=== PATIENT | female | born 1960 | race Caucasian/White ===

== ENCOUNTER → 2017-07-24 | Outpatient (CLI) | payer MEDICAID | END | disposition home or self-care (01) | LOC: US 13:14 | PROC: B54NZZZ Ultrasonography of Left Upper Extremity Veins (ICD-10-PCS; principal; 2017-07-24) | DX: M79.89 Other specified soft tissue disorders (principal) | CPT/HCPCS: Q0092 ==

== ENCOUNTER → 2017-08-07 | Outpatient (CLI) | payer MEDICAID | END | disposition home or self-care (01) | LOC: CT 13:33 | PROC: BP2 Imaging, Non-Axial Upper Bones, Computerized Tomography (CT Scan) (ICD-10-PCS; principal; 2017-08-07) | DX: M79.89 Other specified soft tissue disorders (principal) | CPT/HCPCS: Q9967 ==

== ENCOUNTER → 2018-01-14 | Outpatient (CLI) | payer MEDICAID ==
[2018-01-14 12:30] LABS: ALBUMIN 3.6 g/dL (3.4-5.0); ALKALINE PHOSPHATASE 76 U/L (46-116); ALT/SGPT 28 U/L (14-59); AST/SGOT 28 U/L (15-37); BILIRUBIN TOTAL 0.25 mg/dL (0.20-1.00); CALCIUM 9.2 mg/dL (8.5-10.1); CARBON DIOXIDE 26.2 mmol/L (21-32); CHLORIDE SERUM 102 mmol/L (98-107); CHOLESTEROL 187 mg/dL (<200); CHOLESTEROL/HDL RATIO 3.3; CREATININE SERUM 0.7 mg/dL (0.6-1.0); GFR1 > 60 mL/min; GLUCOSE SERUM 136 mg/dL (74-106); HDL CHOLESTEROL 56 mg/dL (40-60); POTASSIUM SERUM 4.2 mmol/L (3.5-5.1); SODIUM SERUM 138 mmol/L (136-145); TOTAL PROTEIN, SERUM 7.9 g/dL (6.4-8.2); TRIGLYCERIDES 97 mg/dL (<150)
[2018-01-14 12:37] LABS: T3 TOTAL 1.53 ng/mL
[2018-01-14 12:39] LABS: BASOPHIL % 0.4 % (0-2); FREE T4 1.09 ng/dL (0.76-1.46); PLATELET COUNT 319 x10^3mcL (130-400); RED CELL DISTRIBUTION WIDTH 14.4 % (11.5-14.5); T4(THYROXINE) 10.4 ug/dL (4.7-13.3)
== END | disposition home or self-care (01) ==
LOC: LB 11:32
DX: E11.9 Type 2 diabetes mellitus without complications (principal)
CPT/HCPCS: 84439

== ENCOUNTER → 2018-05-28 | Outpatient (CLI) | payer MEDICAID | END | disposition home or self-care (01) | LOC: US 09:25 | PROC: B54DZZZ Ultrasonography of Bilateral Lower Extremity Veins (ICD-10-PCS; principal; 2018-05-28) | PROC: BH47ZZZ Ultrasonography of Upper Extremity (ICD-10-PCS; 2018-05-28) | PROC: B44HZZZ Ultrasonography of Bilateral Lower Extremity Arteries (ICD-10-PCS; 2018-05-28) | DX: M79.89 Other specified soft tissue disorders (principal); R60.0 Localized edema ==

== ENCOUNTER → 2018-07-10 | Outpatient (CLI) | payer MEDICAID ==
[2018-07-10 12:03] LABS: BASOPHIL % 1.8 % (0-2); PLATELET COUNT 291 x10^3mcL (130-400); RED CELL DISTRIBUTION WIDTH 13.6 % (11.5-14.5)
[2018-07-10 12:21] LABS: UA SPECIFIC GRAVITY 1.025 (1.005-1.035); microscopic required? YES; urine erythrocyte 2+ (NEGATIVE)
[2018-07-10 12:30] LABS: ALKALINE PHOSPHATASE 73 U/L (46-116); ALT/SGPT 13 U/L (14-59); AST/SGOT 12 U/L (15-37); BILIRUBIN TOTAL 0.24 mg/dL (0.20-1.00); CALCIUM 8.8 mg/dL (8.5-10.1); CARBON DIOXIDE 25.5 mmol/L (21-32); CHLORIDE SERUM 101 mmol/L (98-107); CHOLESTEROL 158 mg/dL (<200); CHOLESTEROL/HDL RATIO 3.3; CREATININE SERUM 0.8 mg/dL (0.6-1.0); GFR1 > 60 mL/min; GLUCOSE SERUM 132 mg/dL (74-106); HDL CHOLESTEROL 48 mg/dL (40-60); MAGNESIUM 1.8 mg/dL (1.8-2.4); POTASSIUM SERUM 4.2 mmol/L (3.5-5.1); SODIUM SERUM 137 mmol/L (136-145); TOTAL PROTEIN, SERUM 7.5 g/dL (6.4-8.2); TRIGLYCERIDES 120 mg/dL (<150)
[2018-07-10 12:32] LABS: ALBUMIN 3.2 g/dL (3.4-5.0)
[2018-07-10 12:37] LABS: T3 TOTAL 1.26 ng/mL
[2018-07-10 12:42] LABS: FREE T4 1.04 ng/dL (0.76-1.46); FREE THYROXINE INDEX 2.9 ug/dL (1.4-4.5)
[2018-07-11 11:37] LABS: VITAMIN D 25-HYDROXY 22.8 ng/mL (30.0-100.0)
== END | disposition home or self-care (01) ==
LOC: LB 11:24
DX: E11.9 Type 2 diabetes mellitus without complications (principal)
CPT/HCPCS: 84439

== ENCOUNTER 2019-03-22 17:14 | Emergency (ER) | payer MEDICAID ==
[~2019-03-22] VITALS: Ht 162.6 cm; Wt 155.1 kg
[2019-03-22 17:17] VITALS: BP 140/86
== END 2019-03-22 17:23 | disposition left against medical advice (07) ==
LOC: ED 17:14
DX: Z53.21 Procedure and treatment not carried out due to patient leaving prior to being seen by health care provider (principal)